=== PATIENT | female | born 1960 | race Caucasian/White ===

== ENCOUNTER 2016-07-09 09:52 | Inpatient (IN) | payer MEDICARE, OTHER ==
[2016-07-09] MEDS ORDERED: 0.9 % SODIUM CHLORIDE 500 ML IV ONE (10:06)
--- NOTE | 2016-07-09 10:09 | ED Physician Documentation ---
General Adult - HISTORIAN Historian: paramedics, parent (mom), other (NH) - HPI Stated Complaint: SOB Chief Complaint: General Adult Additional Information: Found by [place] staff with pulse ox 87% on ambient air. To ER per EMS, with pulse ox 94% on 2L/NC, Duoneb in process. DNR per mother. - ROS CONST: fever (99.8 per EMS) - PAST HX Past History: other (Spangle's chorea, dementia) Immunizations: influenza, pneumovax Allergies/Adverse Reactions: Allergies Allergy/AdvReac Type Severity Reaction Status Date / Time Sulfa (Sulfonamide Allergy Verified 07/09/16 10:29 Antibiotics) [Sulfa(Sulfonamide Antibiotics)] Home Medications: Ambulatory Orders Medication Instructions Recorded Acetaminophen [Tylenol] 650 mg PO HS 12/15/14 Bisacodyl [Dulcolax] 10 mg RC Q72 12/15/14 Ergocalciferol (Vitamin D2) 2,000 unit PO DAILY 12/15/14 [Vitamin D] Loratadine [Claritin] 10 mg PO DAILY 12/15/14 Lorazepam [Lorazepam] 0.5 mg PO TID 12/15/14 Magnesium Hydroxide [Milk of 2,400 mg PO DAILY PRN 12/15/14 Magnesia] Multivit with Calcium,Iron,Min 1 each PO DAILY 12/15/14 [Tab A Josef] Prazosin HCl [Minipress] 4 mg PO HS 12/15/14 - SOCIAL HX Smoking History: non-smoker, quit greater than 1 year Alcohol Use: none (in the past) Drug Use: none (in the past) - FAMILY HX Family History: Yes (F with Spangle's) - VITAL SIGNS Vital Signs: Vital Signs Temp Pulse Resp BP Pulse Ox 142/60 03/15/15 08:25 - REVIEWED ASSESSMENTS Nursing Assessment Reviewed: Yes Vitals Reviewed: Yes Progress - Progress Progress: CLINICAL HISTORY: Cough. Shortness of breath. FINDINGS: Examination of the chest single portable AP view 07/09/2016 1013 hr with no prior film for comparison demonstrates the lungs to be clear. Cardiovascular and mediastinal silhouettes are within normal limits. Monitor leads superimpose the chest. IMPRESSION: No active disease. Electronically signed on Jul 09, 2016 10:47:10 AM CDT by: Ronnie Byers EKG: sinus rhythm, 97 BPM, no ischemic changes 1127, spoke with Dr. Moran. Will admit pt for treatment of UTI, further eval and treatment of respiratory symptoms. ED Results Lab/Radiology - Orders Orders: ED Orders Category Date Time Status Continuous EKG monitoring Q1H Care 07/09/16 10:03 Active Continuous Pulse Oximetry Q1H Care 07/09/16 10:[address] Saline Lock/IV Now Care 07/09/16 10:06 Ordered CHEST 1 VIEW [RAD] Stat Exams 07/09/16 Ordered CBC/PLATELET/DIFF Routine Lab 07/09/16 Ordered CMP Routine Lab 07/09/16 Ordered URINALYSIS Routine Lab 07/09/16 Ordered NORMAL SALINE @ 1,000 MLS/HR(500ml BOLUS) Med 07/09/16 10:06 Ordered 0.9 % Sodium Chloride [Normal Saline] 500 ml IV NOW Oxygen Daily Oxygen 07/09/16 10:15 Ordered EKG WITH COMPARISON Stat Ther 07/09/16 Ordered General Adult Physical Exam - PHYSICAL EXAM GENERAL APPEARANCE: not verbally responsive (usual state). Wet cough. EENT: eye inspection normal NECK: supple RESPIRATORY: breath sounds normal, rales (RLL) CVS: reg rate & rhythm, heart sounds normal ABDOMEN: soft, normal bowel sounds RECTAL: deferred BACK: other (non-tender. Movements w/o pain) SKIN: warm/dry, normal color EXTREMITIES: no evidence of injury, no edema NEURO: motor nml, sensation nml, other (not responsive, not visually or auditorioy attentive) Discharge Clincal Impression: Urinary tract infection Qualifiers: Urinary tract infection type: acute cystitis Hematuria presence: with hematuria Qualified Code(s): N30.01 - Acute cystitis with hematuria Upper respiratory infection Qualifiers: URI type: unspecified URI Qualified Code(s): J06.9 - Acute upper respiratory infection, unspecified Home Medications: Ambulatory Orders Acetaminophen [Tylenol] 650 mg PO HS 12/15/14 Bisacodyl [Dulcolax] 10 mg RC Q72 12/15/14 Ergocalciferol (Vitamin D2) [Vitamin D] 2,000 unit PO DAILY 12/15/14 Loratadine [Claritin] 10 mg PO DAILY 12/15/14 Lorazepam [Lorazepam] 0.5 mg PO TID 12/15/14 Magnesium Hydroxide [Milk of Magnesia] 2,400 mg PO DAILY PRN 12/15/14 Multivit with Calcium,Iron,Min [Tab A Josef] 1 each PO DAILY 12/15/14 Prazosin HCl [Minipress] 4 mg PO HS 12/15/14 Condition: Fair Disposition: ADMITTED INPATIENT Decision to Admit: NO Date of Decison to Admit: 07/09/16 Decision Time: 11:27
[2016-07-09 10:18] LABS: BASOPHILS % 0.3 (0.0-1.5); MEAN CORPUSCULAR HEMOGLOBIN 31.1 pg (28.0-34.0); MEAN CORPUSCULAR VOLUME 93.8 fl (80.0-100.0); MONOCYTES % 4.5 % (0.0-11.0); NEUTROPHILS # 7.5 # k/uL (1.4-7.7)
[2016-07-09 10:37] LABS: eGFR (African) > 60; eGFR (Non-African) > 60
[2016-07-09 11:05] LABS: APPEARANCE,URINE Clear (CLEAR); COLOR,URINE Yellow (YELLOW); OCCULT BLOOD,URINE Trace-intact (NEGATIVE); UROBILINOGEN URINE 0.2 Eu (0.2-1.0)
[2016-07-09 11:11] LABS: AMORPHOUS SEDIMENT,UR FEW (NEGATIVE)
[2016-07-09] MEDS ORDERED: LEVOFLOXACIN 500MG/D5W 100ML 500 MG in PREMIX BAG 1 BAG IV ONE (11:26)
[2016-07-09] MEDS ORDERED: LEVOFLOXACIN 500MG/D5W 100ML 100 ML IV ONE (11:31)
[2016-07-09] MEDS ORDERED: MAGNESIUM HYDROXIDE 400 MG/5 ML 30ML UDC PO PRN (11:54)
--- NOTE | 2016-07-09 11:57 | History and Physical Report ---
History of Present Illnes - History of Present Illness Reason for Visit: hypoxia History of Present Illness: Patient with Pee's from [place] sent to the ER for URI symptoms. Apparently was fine yesterday but today staff noted "wet" cough, dark green mucous from nose, and acting different. Afebrile but SAT on room air 87%. CXR and influenza testing were negative. Due to hypoxia from URI, patient will be admitted. Urine also looks like it might be infected. Patient is unable to communicate. - Past Medical History Musculoskeletal: Other (Lyon's Chorea) - Past Surgical History Past Surgical History: None - Past Family History Mother Family History: Hypertension Father Family History: , Other (Pee's) Brother 1 Family History: , Other (Brothers x 2 with Lyon's.) - Past Social History Smoke: No Alcohol: None Drugs: None Lives: Custodial - Health Maintenance Health Maintenance: Influenza Vaccine. denies: Pap Smear, Mammogram, Colonoscopy Influenza Vaccine: Current for this Influenza Season Pneumonia Vaccine: Yes Resuscitation Status: DNR Review of Systems - Review of Systems Constitutional: Weakness, Malaise. negative: Fever Eyes: negative: pain ENT: Nose Discharge Respiratory: Cough, Shortness of Breath. negative: Wheezing Cardiovascular: negative: Chest Pain Gastrointestinal: negative: Vomiting, Abdominal Pain, Diarrhea Genitourinary: Incontinence (normal). negative: Frequency Musculoskeletal: negative: Back Pain Skin: negative: Rash Neurological: Weakness - Medications/Allergies Allergies/Adverse Reactions: Allergies Allergy/AdvReac Type Severity Reaction Status Date / Time Sulfa (Sulfonamide Allergy Verified 07/09/16 10:29 Antibiotics) [Sulfa(Sulfonamide Antibiotics)] Current Inpatient Medications: Current Inpatient Medications Acetaminophen (Tylenol) 650 mg PO HS JANAY Al Hydroxide/Mg Hydroxide (Milk Of Magnesia) 2,400 mg PO DAILY PRN PRN Reason: Constipation Albuterol/Ipratropium (Duoneb) 3 ml NEB QID JANAY Bisacodyl (Dulcolax) 10 mg RC Q72 JANAY Cholecalciferol (Vitamin D-3) 2,000 unit PO DAILY JANAY Levofloxacin/Dextrose 500 mg/ (PREMIX BAG) 100 mls @ 100 mls/hr IV NOW ONE Stop: 07/09/16 12:25 Last Admin: 07/09/16 11:38 Dose: 100 mls/hr Sodium Chloride (Normal Saline) 1,000 mls @ 100 mls/hr IV Q10H JANAY Loratadine (Claritin) 10 mg PO DAILY JANAY Lorazepam (Ativan) 0.5 mg PO TID JANAY Prazosin HCl (Minipress) 4 mg PO HS JANAY Exam - Exam Vital Signs: Vital Signs (72 hours) 07/09/16 11:49 Temperature 98.9 F Pulse Rate [ 87 Pulse ox] Respiratory 18 Rate Blood Pressure 102/65 [Left Arm] O2 Sat by Pulse 96 Oximetry General: Alert, Oriented to Person, Oriented to Place, Oriented to Time, Cooperative HEENT: Atraumatic, PERRLA, EOMI, Mouth Mucous membr. moist/[place], Nose Mucous membr. moist/[place] Neck: Normal Range of Motion Lungs: Rhonchi Cardiovascular: Regular rate Abdomen: Normal bowel sounds Integumentary: Normal Extremities: No edema Neurological: Generalized Weakness Psych/Mental Status: No: Mental status NL, Mood NL, Appropriate Affect, Intact Judgment Assessment/Plan - Assessment/Plan (1) Hypoxia Status: Acute Current Visit: Yes Plan: Suspect due to URI. Will plan to admit for duonebs and O2. (2) Huntingtons chorea Status: Chronic Current Visit: Yes (3) Anxiety Status: Chronic Current Visit: Yes (4) Upper respiratory infection Status: Acute Current Visit: Yes Qualifiers: URI type: unspecified URI Qualified Code(s): J06.9 - Acute upper respiratory infection, unspecified Plan: Viral respiratory panel ordered. On IV levaquin for suspected UTI. Await panel and urine culture. VTE Assessment - RISK FACTOR SCORE VTE RISK FACTOR SCORES: AGE 40-60 YEARS, ACUTE INFECTION OTHER THEN SEPSIS - RISK VTE MODERATE RISK: SCORE OF 2 (RISK PROXIMAL DVT 2-4%) PROPHYAXIS NEEDED
[2016-07-09] MEDS ORDERED: SALINE FLUSH 10 ML DISP.SYRIN IVF ONE (12:13)
[2016-07-09] MEDS: ENOXAPARIN SODIUM 40 MG/0.4 ML DISP.SYRIN SQ SCH (12:54)
[2016-07-09] MEDS: LORazepam 0.5 MG TABLET PO SCH ×2 (12:54→17:34)
[2016-07-09] MEDS: IPRATROPIUM/ALBUTEROL SULFATE 3 ML AMPUL.NEB NEB SCH ×3 (13:42→19:45)
[2016-07-09 14:17] VITALS: BMI 28.1
--- NOTE | 2016-07-09 14:28 | Diagnostic Imaging Report ---
CLAUDE DIGGS - MARIO ALBERTO [facility] [id number] [facility] [address] [place] [address]. [id number] Report Submission Date: Jul 09, 2016 10:47:10 AM CDT Patient Study Name: RYANN BAÑUELOS Date: Jul 09, 2016 10:13:27 AM CDT Modality Type: CR Gender: F Description: CHEST : 58 Institution: [facility] Physician: CLAUDE DIGGS - MARIO ALBERTO Chest -one view CLINICAL HISTORY: Cough. Shortness of breath. FINDINGS: Examination of the chest single portable AP view 07/09/2016 1013 hr with no prior film for comparison demonstrates the lungs to be clear. Cardiovascular and mediastinal silhouettes are within normal limits. Monitor leads superimpose the chest. IMPRESSION: No active disease. Electronically signed on Jul 09, 2016 10:47:10 AM CDT by: Ronnie TOLENTINO
[2016-07-09] MEDS: 0.9 % SODIUM CHLORIDE 1,000 ML IV SCH ×2 (15:09→17:33)
[2016-07-09] MEDS ORDERED: PRAZOSIN HCL 4 MG PO SCH (21:00)
[2016-07-09] MEDS ORDERED: ACETAMINOPHEN 325 MG TABLET PO SCH (21:00)
[2016-07-09] MEDS ORDERED: PRAZOSIN HCL 1 MG CAP PO SCH (21:00)
[2016-07-10] MEDS: 0.9 % SODIUM CHLORIDE 1,000 ML IV SCH ×2 (03:19→12:44)
[2016-07-10 06:41] LABS: BASOPHILS % 0.4 (0.0-1.5); EOSINOPHILS % 2.7 % (0.0-6.8); MEAN CORPUSCULAR HEMOGLOBIN 29.4 pg (28.0-34.0); MEAN CORPUSCULAR VOLUME 95.6 fl (80.0-100.0); MONOCYTES % 4.7 % (0.0-11.0); NEUTROPHILS # 2.6 # k/uL (1.4-7.7)
[2016-07-10 06:54] LABS: eGFR (African) > 60; eGFR (Non-African) > 60
[2016-07-10] MEDS ORDERED: ERGOCALCIFEROL 2000 UNIT PO SCH (09:00)
[2016-07-10] MEDS ORDERED: LORATADINE 10 MG TABLET PO SCH (09:00)
[2016-07-10] MEDS ORDERED: MULTIVIT WITH CALCIUM IRON MIN PO SCH (09:00)
[2016-07-10] MEDS ORDERED: CHOLECALCIFEROL 1,000 UNIT TABLET PO SCH (09:00)
[2016-07-10] MEDS: IPRATROPIUM/ALBUTEROL SULFATE 3 ML AMPUL.NEB NEB SCH ×2 (09:07→13:01)
[2016-07-10] MEDS: LORazepam 0.5 MG TABLET PO SCH ×2 (09:50→12:44)
[2016-07-10] MEDS: ENOXAPARIN SODIUM 40 MG/0.4 ML DISP.SYRIN SQ SCH (12:45)
[2016-07-10 13:51] LABS: ADENOVIRUS DNA NEGATIVE (NEGATIVE); BORDETELLA PERTUSSIS DNA NEGATIVE (NEGATIVE); SOURCE: NASOPHARYNGEAL SWAB
--- NOTE | 2016-07-10 14:22 | Discharge Summary ---
Discharge Summary - Discharge Sumary History of Present Illness: Patient with Pee's from [place] sent to the ER for URI symptoms. Apparently was fine yesterday but today staff noted "wet" cough, dark green mucous from nose, and acting different. Afebrile but SAT on room air 87%. CXR and influenza testing were negative. Due to hypoxia from URI, patient will be admitted. Urine also looks like it might be infected. Patient is unable to communicate. Condition at Discharge: Stable Home Medications: Ambulatory Orders Medication Instructions Recorded Acetaminophen [Tylenol] 650 mg PO HS 12/15/14 Bisacodyl [Dulcolax] 10 mg RC Q72 12/15/14 Ergocalciferol (Vitamin D2) 2,000 unit PO DAILY 12/15/14 [Vitamin D] Loratadine [Claritin] 10 mg PO DAILY 12/15/14 Lorazepam 0.5 mg PO TID 12/15/14 Magnesium Hydroxide [Milk of 2,400 mg PO DAILY PRN 12/15/14 Magnesia] Multivit with Calcium,Iron,Min 1 each PO DAILY 12/15/14 [Tab A Josef] Prazosin HCl [Minipress] 4 mg PO HS 12/15/14 Ipratropium/Albuterol Sulfate 3 ml NEB QID ampul.neb 07/10/16 [Duoneb] Levofloxacin [Levaquin] 500 mg PO DAILY #3 tablet 07/10/16 Consultations this Visit: None Procedures this Visit: None Allergies/Adverse Reactions: Allergies Allergy/AdvReac Type Severity Reaction Status Date / Time Sulfa (Sulfonamide Allergy Verified 07/09/16 10:29 Antibiotics) [Sulfa(Sulfonamide Antibiotics)] Patient Problems: Current Active Problems Problem Status Onset Hypoxia Acute Upper respiratory infection Acute Urinary tract infection Acute Anxiety Chronic Huntingtons chorea Chronic Discharge Summary: Patient responded very well to O2 and duonebs. RVP positive for rhinovirus. Able to wean off O2 after 24 hours. Good appetite. Urine culture still pending. Will continue levaquin po until cultures back. Discharged to [place] in good condition. Hospital Course: Discharge Dx: Rhinovirus. [place]'s. Disposition: [place]
[2016-07-10 16:23] VITALS: BP 107/68
[2016-07-12] MEDS ORDERED: BISACODYL 10 MG SUPP.RECT RC SCH (09:00)
== END 2016-07-10 14:50 | DRG 57 ==
LOC: ED 09:52 → SOUTH 11:43 → OBSVTOIN 12:15
PROVIDERS: ADMIT Family Medicine; ATTEND Family Medicine
DX: G10 Huntington's disease (principal); R09.02 Hypoxemia; B34.8 Other viral infections of unspecified site
CPT/HCPCS: 36415; 51701; 71010; 80048; 80053; 81002; 85025; 87040; 87086; 87186; 87400; 87486; 87581; 87633; 87798; 94640; 94760; 99222; 99238; 99283; 99284; J1650; J1956; J7060; A9270-GY; G0378; J7030

== ENCOUNTER 2018-01-10 17:54 | Emergency (ER) | payer MEDICARE, OTHER ==
--- NOTE | 2018-01-10 18:07 | ED Physician Documentation ---
General Adult - HISTORIAN Historian: paramedics - HPI Stated Complaint: choking episode Chief Complaint: General Adult Onset: minutes Timing: better Severity: moderate (mild or resolved upon arrival at ER.) Further Comments: yes (Pt is a 57 yo female [facility] pt with Pee's dz. Pt had a choking episode at the [facility]. Heimlich maneuver was attempted, then pt's distress resolved. It is believed pt swallowed the food that she had gagged on. skilled nursing had some concern about aspiration. Pt appears at baseline upon arrival.) - ROS CONST: other (Pt unable to give ROS.) - PAST HX Past History: other ([place]'s) Allergies/Adverse Reactions: Allergies Allergy/AdvReac Type Severity Reaction Status Date / Time Sulfa (Sulfonamide Allergy Verified 01/10/18 18:11 Antibiotics) [Sulfa(Sulfonamide Antibiotics)] Home Medications: Ambulatory Orders Medication Instructions Recorded Acetaminophen [Tylenol] 650 mg PO HS 12/15/14 Bisacodyl [Dulcolax] 10 mg RC Q72 12/15/14 Ergocalciferol (Vitamin D2) 2,000 unit PO DAILY 12/15/14 [Vitamin D] Loratadine [Claritin] 10 mg PO DAILY 12/15/14 Lorazepam 0.5 mg PO TID 12/15/14 Magnesium Hydroxide [Milk of 2,400 mg PO DAILY PRN 12/15/14 Magnesia] Multivit with Calcium,Iron,Min 1 each PO DAILY 12/15/14 [Tab A Josef] Prazosin HCl [Minipress] 4 mg PO HS 12/15/14 Ipratropium/Albuterol Sulfate 3 ml NEB QID ampul.neb 07/10/16 [Duoneb] - SOCIAL HX Smoking History: non-smoker - FAMILY HX Family History: Yes (Father & 2 brothers with Pee's) - VITAL SIGNS Vital Signs: Vital Signs Temp Pulse Resp BP Pulse Ox 107/68 07/10/16 14:21 - REVIEWED ASSESSMENTS Nursing Assessment Reviewed: Yes Vitals Reviewed: Yes Progress - Progress Progress: CXR: General Adult Physical Exam - PHYSICAL EXAM GENERAL APPEARANCE: no distress EENT: pharynx normal NECK: normal inspection, supple RESPIRATORY: no resp distress, chest non-tender, breath sounds normal CVS: reg rate & rhythm, heart sounds normal ABDOMEN: soft, no organomegaly, normal bowel sounds BACK: normal inspection SKIN: warm/dry, normal color EXTREMITIES: non-tender NEURO: other (Dade's chorea) Discharge Clincal Impression: choking episode, concern for aspiration Referrals: Amairani Moran MD [Primary Care Provider] - Condition: Stable Disposition: 04 [facility] Decision to Admit: NO Decision Time: 18:36
--- NOTE | 2018-01-10 18:34 | Diagnostic Imaging Report ---
ELVIN ELIZALDE [facility] [address] [facility] [address] [place] [address]. [id number] Report Submission Date: Jan 10, 2018 6:30:29 PM CDT Patient Study Name: RYANN BAÑUELOS Date: Jan 10, 2018 6:15:57 PM CDT Modality Type: DX Gender: F Description: CHEST : 58 Institution: [facility] Physician: ELVIN ELIZALDE Portable chest CLINICAL HISTORY: Choking episode. Possible aspiration. FINDINGS: Examination of the chest in single portable AP view demonstrates the lungs to be clear. Cardiovascular and mediastinal silhouettes are within normal limits. The bony thorax is intact. IMPRESSION: Negative chest. Electronically signed on Jan 10, 2018 6:30:29 PM CDT by: Ronnie TOLENTINO
[2018-01-10 18:48] VITALS: BP 134/69
== END 2018-01-10 18:45 ==
LOC: ED 17:54
DX: R09.89 Other specified symptoms and signs involving the circulatory and respiratory systems (principal); G10 Huntington's disease
CPT/HCPCS: 71045; 99282